=== PATIENT | female | born 1945 | race African-American/Black ===

== ENCOUNTER 2019-11-11 13:00 | Emergency (ER) | payer SELFPAY ==
[~2019-11-11] VITALS: Ht 162.6 cm; Wt 115.0 kg
[2019-11-11] MEDS ORDERED: SODIUM CHLORIDE 0.9% 1,000 ML IV ONE (15:20)
[2019-11-11] MEDS ORDERED: MORPHINE SULFATE 4 MG/ML CPJ (NOT FOR IM USE) IV STA (15:20)
[2019-11-11] MEDS ORDERED: ONDANSETRON HCL 4MG/2ML INJ IV STA (15:20)
[2019-11-11 15:36] LABS: EOSINOPHILS % 1.1 % (0.0-5.0); HEMOGLOBIN. 13.2 g/dL (12.0-16.0); LYMPHOCYTES % 19.5 % (20.0-50.0); MEAN CORPUSCULAR HEMOGLOBIN 27.1 pg (28.0-32.0); MEAN CORPUSCULAR VOLUME 84.1 fL (81.0-99.0); MEAN PLATELET VOLUME 9.6 fl (7.4-10.4); MONOCYTES % 5.8 % (2.0-8.0); NEUTROPHILS % 72.6 % (40.0-76.0); PLATELET 282 x1000/uL (130-400); RED BLOOD CELL COUNT 4.87 mill/uL (4.2-5.4)
[2019-11-11 15:40] LABS: CLARITY URINE CLEAR (CLEAR); COLOR URINE YELLOW (YELLOW); KETONES URINE NEGATIVE (NEGATIVE); LEUKOCYTE ESTERASE URINE NEGATIVE (NEGATIVE); NITRITE URINE NEGATIVE (NEGATIVE); OCCULT BLOOD URINE NEGATIVE (NEGATIVE); PROTEIN URINE NEGATIVE (NEGATIVE); SPECIFIC GRAVITY URINE 1.009 (1.005-1.030); UROBILINOGEN URINE 0.2 E.U./dL (0.2-1.0)
[2019-11-11 15:44] LABS: CHLORIDE 104 mEq/L (98-107)
[2019-11-11 18:20] VITALS: BP 178/84
== END 2019-11-11 18:27 | disposition home or self-care (01) ==
LOC: ER 13:18
DX: R10.13 Epigastric pain (principal); R10.31 Right lower quadrant pain; R10.32 Left lower quadrant pain; R30.0 Dysuria; Z90.49 Acquired absence of other specified parts of digestive tract; Z98.890 Other specified postprocedural states
CPT/HCPCS: 36415; 71045; 74176; 80053; 81003; 83690; 85025; 93005; 96374; 96375; 99284; J2270; J2405; J7030; Z7610

== ENCOUNTER 2021-01-19 21:09 | Emergency (ER) | payer OTHER ==
[~2021-01-19] VITALS: Ht 162.6 cm; Wt 64.0 kg
[2021-01-19] MEDS ORDERED: FAMOTIDINE 20MG/2ML VIAL IV STA (23:05)
[2021-01-19] MEDS ORDERED: MORPHINE SULFATE 4 MG/ML CPJ (NOT FOR IM USE) IV STA (23:05)
[2021-01-19] MEDS ORDERED: ONDANSETRON HCL 4MG/2ML INJ IV STA (23:05)
[2021-01-19 23:19] LABS: HEMATOCRIT. 31.8 % (36.0-48.0); HEMOGLOBIN. 10.4 g/dL (12.0-16.0); MEAN CORPUSCULAR HEMOGLOBIN 25.3 pg (28.0-32.0); MEAN CORPUSCULAR VOLUME 77.6 fL (81.0-99.0); MEAN PLATELET VOLUME 9.1 fl (7.4-10.4); PLATELET 390 x1000/uL (130-400); RED CELL DISTRIBUTION WIDTH 16.3 % (11.6-14.6)
[2021-01-19 23:26] LABS: CHLORIDE 108 mEq/L (98-107)
[2021-01-19] MEDS ORDERED: TETRACAINE 0.5% OPHTH DROPS 4ML BOTHEYE ONE (23:30)
[2021-01-20 00:01] LABS: INR 0.9; PROTHROMBIN TIME 10.1 sec (9.6-11.0)
[2021-01-20 00:07] LABS: PLATELET ESTIMATE NORMAL
[2021-01-20 01:06] LABS: CLARITY URINE CLEAR (CLEAR); COLOR URINE YELLOW (YELLOW); KETONES URINE NEGATIVE (NEGATIVE); LEUKOCYTE ESTERASE URINE TRACE (NEGATIVE); NITRITE URINE NEGATIVE (NEGATIVE); OCCULT BLOOD URINE NEGATIVE (NEGATIVE); PH URINE 6.5 (4.5-8.0); PROTEIN URINE NEGATIVE (NEGATIVE); UROBILINOGEN URINE 0.2 E.U./dL (0.2-1.0)
[2021-01-20] MEDS ORDERED: TIMOLOL MALEATE 0.25% OPHTH DROPS 5ML RIGHTEYE STA (02:13)
[2021-01-20] MEDS ORDERED: ACETAZOLAMIDE 500MG ER CAPSULE PO ONE (02:15)
[2021-01-20] MEDS ORDERED: ACETAZOLAMIDE SODIUM 500MG/VIAL IV SCH (07:45)
[2021-01-20 11:55] VITALS: BP 142/67
[2021-01-20] MEDS ORDERED: DORZOLAMIDE 2% OPHTH 10 ML BOTTLE EACHEYE SCH (14:00)
[2021-01-20] MEDS ORDERED: TIMOLOL MALEATE 0.5% OPHTH DROPS 5ML EACHEYE SCH (21:00)
[2021-01-20] MEDS ORDERED: LATANOPROST 0.005% OPHTH DROPS 2.5ML EACHEYE SCH (21:00)
[2021-01-20] MEDS ORDERED: METHAZOLAMIDE 50MG TABLET PO SCH (21:00)
== END 2021-01-20 12:01 | disposition home or self-care (01) ==
LOC: ER 21:09
DX: R10.13 Epigastric pain (principal); H40.10X0 Unspecified open-angle glaucoma, stage unspecified; Z90.49 Acquired absence of other specified parts of digestive tract
CPT/HCPCS: 36415; 70450; 71045; 74176; 80053; 81003; 83605; 83690; 85025; 85610; 93005; 96374; 96375; 99285; J1120; J2270; J2405; J3490

== ENCOUNTER 2022-05-05 16:13 | Inpatient (IN) | payer MEDICAID, OTHER ==
[~2022-05-05] VITALS: Ht 162.6 cm; Wt 74.4 kg
[2022-05-05 21:39] LABS: BASOPHILS % 1.3 % (0.0-2.0); HEMATOCRIT. 42.4 % (36.0-48.0); HEMOGLOBIN. 13.3 g/dL (12.0-16.0); LYMPHOCYTES % 30.2 % (20.0-50.0); MEAN CORPUSCULAR HEMOGLOBIN 27.7 pg (28.0-32.0); MEAN CORPUSCULAR VOLUME 88.2 fL (81.0-99.0); MEAN PLATELET VOLUME 8.7 fl (7.4-10.4); MONOCYTES % 8.5 % (2.0-8.0); PLATELET 282 x1000/uL (130-400); RED BLOOD CELL COUNT 4.81 mill/uL (4.2-5.4); RED CELL DISTRIBUTION WIDTH 13.6 % (11.6-14.6)
[2022-05-05 21:44] LABS: CHLORIDE 100 mEq/L (98-107)
[2022-05-06] MEDS ORDERED: ACETAMINOPHEN WITH CODEINE 300/30MG TABLET PO ONE (04:15)
[2022-05-06] MEDS ORDERED: PIPERACILLIN/TAZ 3.375G PREMIX 50 ML IV ONE (04:15)
[2022-05-06 08:15] VITALS: BP 150/54
[2022-05-06] MEDS ORDERED: DOCU100T PO (08:49)
[2022-05-06] MEDS ORDERED: ATOR20TA65 PO (08:49)
[2022-05-06] MEDS ORDERED: FERR325T6 PO (08:49)
[2022-05-06] MEDS ORDERED: FOLI-43 PO (08:49)
[2022-05-06] MEDS ORDERED: DIPHENHYDRAMINE 50MG/ML VIAL IV PRN (10:00)
[2022-05-06] MEDS ORDERED: ONDANSETRON HCL 4MG/2ML INJ IV PRN (10:00)
[2022-05-06] MEDS ORDERED: IPRATROPIUM/ALBUTEROL 0.5-3(2.5)MG/3ML NEB HHN PRN (10:00)
[2022-05-06 12:00] VITALS: BP 143/53
[2022-05-06] MEDS: PIPERACILLIN/TAZOBACTAM 3.375 G in DEXTROSE 5% WATER 50 ML IV SCH ×2 (15:04→21:07)
[2022-05-06 16:00] VITALS: BP 149/57
[2022-05-06 20:00] VITALS: BP 123/75
[2022-05-06] MEDS: CYCLOPENTOLATE HCL 1% OPHTH DROPS 2ML LEFTEYE SCH (20:00)
[2022-05-06] MEDS: CIPROFLOXACIN 0.3% OPHTH SOLN 2.5ML LEFTEYE SCH (21:00)
[2022-05-06] MEDS: NEO/POLYMYX B SULF/DEXAMETH OPHTH OINT 3.5GM LEFTEYE SCH (22:00)
[2022-05-06] MEDS: ACETAMINOPHEN 325MG TABLET PO PRN (22:51)
[2022-05-07] VITALS (7 sets, daily range): BP systolic 97–170; BP diastolic 44–78
[2022-05-07] MEDS: PREDNISOLONE ACETATE 1% OPHTH DROPS 5ML BOTHEYE SCH ×5 (00:21→21:42)
[2022-05-07] MEDS: CLONIDINE 0.1MG TABLET PO PRN (00:26)
[2022-05-07] MEDS: ACETAMINOPHEN 325MG TABLET PO PRN (03:00)
[2022-05-07] MEDS: PIPERACILLIN/TAZOBACTAM 3.375 G in DEXTROSE 5% WATER 50 ML IV SCH ×3 (06:03→21:41)
[2022-05-07] MEDS: NEO/POLYMYX B SULF/DEXAMETH OPHTH OINT 3.5GM LEFTEYE SCH ×3 (06:04→21:41)
[2022-05-07 06:53] LABS: BASOPHILS % 1.3 % (0.0-2.0); EOSINOPHILS % 1.4 % (0.0-5.0); HEMATOCRIT. 36.8 % (36.0-48.0); LYMPHOCYTES % 30.7 % (20.0-50.0); MEAN CORPUSCULAR HEMOGLOBIN 28.1 pg (28.0-32.0); MEAN CORPUSCULAR VOLUME 86.4 fL (81.0-99.0); MEAN PLATELET VOLUME 8.8 fl (7.4-10.4); MONOCYTES % 9.7 % (2.0-8.0); NEUTROPHILS % 56.9 % (40.0-76.0); PLATELET 280 x1000/uL (130-400); RED BLOOD CELL COUNT 4.26 mill/uL (4.2-5.4); RED CELL DISTRIBUTION WIDTH 13.3 % (11.6-14.6)
[2022-05-07 07:12] LABS: CHLORIDE 97 mEq/L (98-107)
[2022-05-07] MEDS: CIPROFLOXACIN 0.3% OPHTH SOLN 2.5ML LEFTEYE SCH ×4 (08:43→21:41)
[2022-05-07] MEDS: CYCLOPENTOLATE HCL 1% OPHTH DROPS 2ML LEFTEYE SCH ×3 (08:43→17:29)
[2022-05-07] MEDS: MORPHINE SULFATE 2 MG/ML CPJ (NOT FOR IM USE) IV PRN (21:42)
[2022-05-08] VITALS: BP 127/55
[2022-05-08 04:00] VITALS: BP 133/54
[2022-05-08] MEDS: PIPERACILLIN/TAZOBACTAM 3.375 G in DEXTROSE 5% WATER 50 ML IV SCH ×3 (05:04→21:29)
[2022-05-08] MEDS: PREDNISOLONE ACETATE 1% OPHTH DROPS 5ML BOTHEYE SCH ×3 (05:04→17:13)
[2022-05-08] MEDS: NEO/POLYMYX B SULF/DEXAMETH OPHTH OINT 3.5GM LEFTEYE SCH ×3 (05:05→21:38)
[2022-05-08] MEDS: MORPHINE SULFATE 2 MG/ML CPJ (NOT FOR IM USE) IV PRN (05:06)
[2022-05-08 07:54] LABS: BASOPHILS % 1.4 % (0.0-2.0); EOSINOPHILS % 0.8 % (0.0-5.0); HEMATOCRIT. 38.5 % (36.0-48.0); HEMOGLOBIN. 12.2 g/dL (12.0-16.0); LYMPHOCYTES % 25.7 % (20.0-50.0); MEAN CORPUSCULAR HEMOGLOBIN 27.7 pg (28.0-32.0); MEAN CORPUSCULAR VOLUME 87.2 fL (81.0-99.0); MONOCYTES % 8.2 % (2.0-8.0); NEUTROPHILS % 63.9 % (40.0-76.0); PLATELET 285 x1000/uL (130-400); RED BLOOD CELL COUNT 4.41 mill/uL (4.2-5.4); RED CELL DISTRIBUTION WIDTH 13.4 % (11.6-14.6)
[2022-05-08 08:00] VITALS: BP 178/88
[2022-05-08 08:14] LABS: CHLORIDE 100 mEq/L (98-107)
[2022-05-08] MEDS: CLONIDINE 0.1MG TABLET PO PRN (08:58)
[2022-05-08] MEDS: CYCLOPENTOLATE HCL 1% OPHTH DROPS 2ML LEFTEYE SCH ×3 (08:59→17:13)
[2022-05-08] MEDS: CIPROFLOXACIN 0.3% OPHTH SOLN 2.5ML LEFTEYE SCH ×4 (09:00→21:30)
[2022-05-08 12:00] VITALS: BP 140/66
[2022-05-08] MEDS: ACETAMINOPHEN 325MG TABLET PO PRN (13:59)
[2022-05-08 15:03] VITALS: BP 135/60
[2022-05-08 20:00] VITALS: BP 115/37
[2022-05-09] VITALS: BP 139/55
[2022-05-09] MEDS: PREDNISOLONE ACETATE 1% OPHTH DROPS 5ML BOTHEYE SCH ×4 (00:26→18:00)
[2022-05-09] MEDS: ACETAMINOPHEN 325MG TABLET PO PRN ×3 (00:35→14:09)
[2022-05-09 04:00] VITALS: BP 121/54
[2022-05-09] MEDS: PIPERACILLIN/TAZOBACTAM 3.375 G in DEXTROSE 5% WATER 50 ML IV SCH ×2 (05:53→14:08)
[2022-05-09] MEDS: NEO/POLYMYX B SULF/DEXAMETH OPHTH OINT 3.5GM LEFTEYE SCH ×2 (06:29→14:09)
[2022-05-09 08:00] VITALS: BP 117/53
[2022-05-09] MEDS: CIPROFLOXACIN 0.3% OPHTH SOLN 2.5ML LEFTEYE SCH ×3 (08:57→17:00)
[2022-05-09] MEDS: CYCLOPENTOLATE HCL 1% OPHTH DROPS 2ML LEFTEYE SCH ×3 (08:57→17:00)
[2022-05-09] MEDS ORDERED: [UNRECOGNIZED DRUG - OTHER] LEFTEYE (10:38)
[2022-05-09] MEDS ORDERED: CYCL2DRO LEFTEYE (10:38)
[2022-05-09] MEDS ORDERED: CIPR2.5D13 LEFTEYE (10:38)
[2022-05-09] MEDS ORDERED: PRED5DRO22 RIGHTEYE (10:39)
[2022-05-09 12:00] VITALS: BP 147/56
[2022-05-09 16:00] VITALS: BP 116/56
[2022-05-09 16:20] VITALS: BP 147/56
== END 2022-05-09 19:10 | DRG 82 ==
LOC: ER 16:13 → MICUSO 05-06 06:36 → 6WST 05-06 07:17
PROVIDERS: ADMIT Internal Medicine; ATTEND Internal Medicine
DX: S05.12XA Contusion of eyeball and orbital tissues, left eye, initial encounter (principal); H44.002 Unspecified purulent endophthalmitis, left eye; F03.90 Unspecified dementia, unspecified severity, without behavioral disturbance, psychotic disturbance, mood disturbance, and anxiety; H20.9 Unspecified iridocyclitis; H10.9 Unspecified conjunctivitis; L03.213 Periorbital cellulitis; E78.00 Pure hypercholesterolemia, unspecified; D64.9 Anemia, unspecified; I10 Essential (primary) hypertension; W22.8XXA Striking against or struck by other objects, initial encounter; Y93.89 Activity, other specified; Y92.008 Other place in unspecified non-institutional (private) residence as the place of occurrence of the external cause; Y99.8 Other external cause status
CPT/HCPCS: 36415; 70486; 71045; 80048; 80053; 85025; 93970; 97161; 99291; J1200; J2270; J2543; J7060